=== PATIENT | male | born 1945 | race Caucasian/White ===

== ENCOUNTER 2016-12-20 07:38 | Day surgery (SDC) | payer MEDICARE ==
[~2016-12-20] VITALS: Ht 172.7 cm; Wt 81.7 kg
[~2016-12-20 07:38] MED LIST: 0.9% Sodium Chloride 1,000 ML IV SCH; ATRV10T PO; LISI10TA PO; Sodium Chloride LOK Flush 10 mL Syringe IV PRN; fentaNYL-PF 50 mCg/mL 2 mL Inj IVPUSH PRN
[2016-12-20] MEDS ORDERED: fentaNYL-PF 50 mCg/mL 2 mL Inj IVPUSH ONE (07:39)
[2016-12-20 08:22] VITALS: BP 142/79; PULSE 84; O2SAT 100
[2016-12-20 09:03] VITALS: BP 107/69; PULSE 70; RESP 15; O2SAT 98
--- NOTE | 2016-12-20 09:12 | ENDO ---
[address] [address] ENDOSCOPY PROCEDURE PATIENT: MARLON HATHAWAY : 1945 MR#: [id number] ADMIT: 12/20/2016 JOB ID: [id number] PROCEDURE: Colonoscopy with biopsy. PREOPERATIVE DIAGNOSIS(ES): History of colon polyps. POSTOPERATIVE DIAGNOSIS(ES): There were two 2 mm sigmoid polyps removed by cold biopsy forceps. ANESTHESIA: Fentanyl 100 mcg, Versed 5 mg IV administered. COMPLICATIONS: None. BLOOD LOSS: Minimal. DESCRIPTION OF PROCEDURE: After risks and benefits were explained to the patient, informed consent was obtained. After anesthesia administered, colonoscope was inserted from the rectum to the cecum. Mucosa was carefully examined. Prep of the patient was fair. After the procedure was done, the scope was withdrawn and the procedure terminated. FINDINGS: Upon inspection of the anus, no masses, hemorrhoids, ulcers, or fissures that were seen. Throughout the entire examination, there were two polyps measuring 2 mm in size in the sigmoid colon. Both were completely removed by cold biopsy forceps. No other polyps or masses were seen. Retroflexion was normal. IMPRESSION: There were two 2 mm sigmoid polyps removed by cold biopsy forceps. RECOMMENDATION: Await pathology results. Repeat colonoscopy in five years given history of colon polyps.
[2016-12-20 09:13] VITALS: BP 113/67; PULSE 70; RESP 14; O2SAT 97
[2016-12-20 09:23] VITALS: BP 115/69; PULSE 68; RESP 14; O2SAT 98
[2016-12-20 09:33] VITALS: BP 133/78; PULSE 75; RESP 16; O2SAT 99
--- NOTE | 2016-12-21 13:53 | PATH ---
SURGICAL PATHOLOGY Attending Physician:Lee Uribe MD CASE STATUS: Signed Out PATIENT NAME: MARLON HATHAWAY PID: [id number] : 1945 DATE COLLECTED:12/20/2016 19:52 SPECIMEN: Colon, Biopsy CLINICAL HISTORY: 1). SIGMOID POLYPS X2 FINAL DIAGNOSIS: 1.SIGMOID POLYPS: HYPERPLASTIC POLYP INVOLVING ALL THREE BIOPSY FRAGMENTS. ICD10 K63.5 GROSS DESCRIPTION: The specimen is received in one formalin filled container labeled with the patient's name, sublabeled "sigmoid polyps" and consists of 3 portions of tissue which aggregate to 0.3 x 0.3 x 0.2 CM. The specimen is entirely submitted in one cassette. 12/20/2016 [facility] MICRO DESCRIPTION: See diagnosis. ICD-9 CODES: CPT CODES: 1: 50365 Electronically Signed Out Elan Pulliam MD [facility] [address], [place] [address] Technical component performed at [facility], [facility] [address], [address]
== END 2016-12-20 23:59 | disposition home or self-care (01) ==
LOC: END 07:38
PROVIDERS: ATTEND Internal Medicine Gastroenterology
DX: Z12.11 Encounter for screening for malignant neoplasm of colon (principal); Z86.010 Personal history of colon polyps; K63.5 Polyp of colon; I10 Essential (primary) hypertension; E78.5 Hyperlipidemia, unspecified
CPT/HCPCS: 45380; 88305; G0500; J2250; J3010; J7030